=== PATIENT | male | born 1970 | race Caucasian/White ===

== ENCOUNTER 2019-09-06 07:33 | Observation (INO) ==
--- NOTE | 2019-09-05 11:44 | Anesthesiology Consultation ---
Date of Service September 05, 2019 Assessment & Plan (1) Encounter for pre-operative examination: Chart Review Chart Review: Patient NOT seen in Pre Admission Testing See below - clearance not possible due to no available information or testing. Consults Requested none Additional Notes Per cardiac note from Luis Fitzpatrick - "Preoperative Cardiologic Evaluation. He is scheduled to undergo a Left KEVIN with Dr. Lloyd on 09/06/2018. Patient was referred because of an Abnormal Preoperative EKG dated 08/25/2019 which was read as an Accelerated Junctional Rhythm at 79 bpm this tracing -- however has a lot of artifact and I have no prior tracings to compare it to. Repeat EKG today shows normal sinus rhythm at 87 bpm, and it has much less artifact than his 08/25/2019 tracing -- and P wave morphology in the lateral leads of both tracings as the same. This would suggest that his 08/25/2019 tracing was indeed normal sinus rhythm and not an accelerated junctional rhythm. Because he has small Q-waves in leads III and aVF -- we did a quick look echocardiogram in the office which showed normal LV size, wall motion, and systolic function. LVEF 55% to 60%. Based on his functional status without limiting cardiopulmonary symptoms, normal LV systolic function and wall motion on echocardiogram today -- on patient is an acceptable surgical risk to proceed with surgery as scheduled, we recommend that he take his usual dose of Amlodipine 10 mg on the morning of surgery with sips of water. He should hold his Lisinopril the morning of surgery. There is no need for further cardiac workup at this time." Otherwise, we have no available information on the patient at this time. EKG was never sent from the surgeons office and no preoperative lab work was completed. Preoperative questions were not asked. Patient cannot be fully cleared at this time. Pt tentatively cleared for full preoperative workup on the DOS. Orders placed for repeat EKG, CMP, CBC, INR DOS. Additional orders including fluid bolus will need to wait for further testing results. History Surgery Operation Date: 07/12/19 07:00 Proposed Procedures p Left Total Hip Arthroplasty - Alejo Lloyd MD Operation Date: 09/06/19 10:10 Proposed Procedures p Left Total Hip Arthroplasty - Alejo Lloyd MD Height/Weight Height: 5 ft 11 in Weight: 114.759 kg Allergies Allergy/AdvReac Type Severity Reaction Status Date / Time azithromycin [From Zithromax] Allergy Unknown UNKN Verified 09/05/19 09:55 Medications Home Medications Medication Instructions Recorded Confirmed Last Taken acetaminophen 500 mg PO QID PRN 06/30/19 09/05/19 Unknown amlodipine 10 mg PO QAM 06/30/19 09/05/19 Unknown atorvastatin 10 mg PO HS 06/30/19 09/05/19 Unknown fluoxetine 20 mg PO HS 06/30/19 09/05/19 Unknown levalbuterol tartrate [Xopenex HFA] 1 puff INHALATION Q6H PRN 06/30/19 09/05/19 Unknown lisinopril 30 mg PO QAM 06/30/19 09/05/19 Unknown Past Medical History Medical History Asthma High cholesterol Hypertension Major depressive disorder Osteoarthritis Past Surgical History Surgical History No history of previous surgery Social History Smoking Status: Unknown if ever smoked
[~2019-09-06 07:33] MED LIST: BUPIVACAINE 0.5 % 5 MG/1 ML PF 10ML VIAL ONE; CEFAZOLIN 2000MG 2,000 MG/15 ML SYR IV SCH; LR 15ML/HR IV SCH; LR 60ML/HR IV SCH; ROPIVACAINE 0.5% HCL/PF 150 MG, BUPIVACAINE 0.5% MPF 30 ML, EPINEPHrine 0.15 MG, Ketoro... INFIL SCH; TRANEXAMIC ACID 1,000 MG **IV Pre-op IV SCH; VANCOMYCIN HCL 1,750 MG in SODIUM CHLORIDE 0.9% 500 ML IV SCH
--- NOTE | 2019-09-06 07:44 | History & Physical Bridge Note ---
Date of Service September 06, 2019 History & Physical Bridge Note I have examined the patient, reviewed the History & Physical and in the interval since the performance of the History & Physical I have noted the following changes of clinical significance: consent obtained.no changes noted
[2019-09-06] MEDS ORDERED: TRANEXAMIC ACID / 0.7% NACL 1000MG/100ML BAG IV ONE (08:26)
[2019-09-06] MEDS ORDERED: MIDAZOLAM HCL 1 MG/ML 2ML VIAL ONE (08:37)
[2019-09-06] MEDS ORDERED: DEXAMETHASONE SOD INJ 4 MG/ML VIAL ONE (08:37)
[2019-09-06] MEDS ORDERED: LIDOCAINE HCL 2% 2 ML VIAL/AMP(20MG/ML) INFIL ONE (08:37)
[2019-09-06] MEDS ORDERED: PROPOFOL IV EMULSION 10 MG/ML 20 ML VIAL IV ONE ×4 (08:37→11:24)
[2019-09-06] MEDS ORDERED: ONDANSETRON INJ 2 MG/ML 2 ML VIAL ONE (08:37)
[2019-09-06] MEDS ORDERED: HYDROmorphone INJ 1 MG/ML SYRINGE IV PRN (09:06)
[2019-09-06] MEDS ORDERED: ONDANSETRON INJ 2 MG/ML 2 ML VIAL IV PRN ×2 (09:06→13:25)
[2019-09-06] MEDS ORDERED: KETOROLAC 30 MG/ML VIAL IV PRN (09:06)
[2019-09-06] MEDS ORDERED: ePHEDrine sulfate 50 MG/ML AMP IV PRN (09:06)
[2019-09-06] MEDS ORDERED: ATROPINE SULFATE 0.1 MG/ML 10ML SYR IV PRN (09:06)
[2019-09-06] MEDS ORDERED: ORTHO JOINT ANESTHETIC ONE (09:44)
[2019-09-06] MEDS ORDERED: PHENYLEPHRINE 100MCG/ML 5ML SYR ONE (10:17)
[2019-09-06] MEDS ORDERED: KETAMINE HCL INJ 50 MG/ML 10 ML VIAL ONE (10:28)
[2019-09-06] MEDS ORDERED: GLYCOPYRROLATE 0.2 MG/ML VIAL ONE (10:34)
[2019-09-06] MEDS ORDERED: PHENYLEPHRINE HCL 10 MG/ML VIAL ONE (11:01)
--- NOTE | 2019-09-06 11:42 | Post Operative Brief Note ---
Immediate Post Op Note v1 Date of Surgery September 06, 2019 Pre & Post Diagnosis Operation Date: 07/12/19 07:00 <No data on this case meets the specified criteria> Operation Date: 09/06/19 10:10 Pre-Op Diagnosis: Degenerative Joint Disease Left Hip Post-Op Diagnosis: Degenerative Joint Disease Left Hip I identified the patient and participated in the time-out.: Yes Procedure Operation Date: 07/12/19 07:00 <No data on this case meets the specified criteria> Operation Date: 09/06/19 10:10 Actual Procedures p Left Total Hip Arthroplasty, Uncemented(Left) - Alejo Lloyd MD Surgeon Alejo Lloyd MD [facility] Re[facility]ist [facility] Estimated Blood Loss 125 Findings Consistent with Post-Op Diagnosis
--- NOTE | 2019-09-06 11:42 | Electrocardiogram Report ---
Test Reason : Blood Pressure : / mmHG Vent. Rate : 077 BPM Atrial Rate : 077 BPM P-R Int : 156 ms QRS Dur : 088 ms QT Int : 400 ms P-R-T Axes : 020 043 035 degrees QTc Int : 452 ms Normal sinus rhythm Normal ECG No previous ECGs available Confirmed by Antonio Samuel ([id number]) on 09/06/2019 11:41:48 AM Referred By: Alejo Lloyd Confirmed By:Antonio Samuel
--- NOTE | 2019-09-06 11:50 | Operative Report ---
DATE OF OPERATION: 09/06/2019 SURGEON: Alejo Lloyd MD POWER GENERATING PLANT OPERATOR: John Dunaway PA-C. No resident or fellow available. 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 OPERATION PERFORMED: Non-cemented left total hip replacement. SUMMARY OF IMPLANTS: Size 54 acetabular shell sector cup, 30 x 6.5 screw, 36 x 54 neutral liner, 1 standard size 2 Tri-Lock stem, 36+1.5 ceramic head. ESTIMATED BLOOD LOSS: 125 mL. CRYSTALLOID: Per anesthesia. IV antibiotics and consent confirmed. DESCRIPTION OF PROCEDURE: The patient appropriately identified, site verified, consent verified. Antibiotics confirmed as being given. The left lower extremity was prepped and draped in usual routine fashion with the patient in the right lateral decubitus position. He had severe stiffness of the hip with flexion to about 70 degrees, extension to -20 degrees, rotation arc 25 degrees. Abduction was about 25 degrees to 30 degrees. Once he was prepped and draped in usual routine fashion, a generous Rohan-Langenbeck incision was made, old incision that was used for previous surgeries was avoided. Full thickness flaps raised scar tissue released and the IT band on the gluteus wali fascia was then split. A retractor was then placed. Care taken to protect the sciatic nerve. The short external rotators were then released off the femur. Capsule was then teed, the hip was then dislocated. There was marked deformity of the humeral neck, head and had a large osteophyte off both the acetabulum and off the femoral head. Once the head was resected, the soft tissue was released further around the acetabulum, the femur out of the way and once this was done, reasonable exposure was obtained. The labrum was then excised. Exposure was then improved. Osteophytes were then resected off the posterior and inferior margin of the acetabulum. Serial reaming was then carried up to a size 54 and a 54 cup impacted into appropriate anteversion and inclination with excellent pressfit. A 6.5 x 30 screw was placed with excellent purchase. Trial liner was seated. Some additional osteophytes resected. Femur was then flexed and internally rotated. The proximal femur was completely sealed shut. This required careful reaming by hand and by power to find the canal. Once this was done, serial broaching ring was carried up to a size 1. Size 1 was quite tight and fit well. Trial reduction with a +5 and a +1.5 was carried out. The +5 gave the leg lengths slightly longer. However, the hip was very, very tight, so it was elected to go to 1.5. The hip was stable with both heads. This was with marked flexion, internal rotation and adduction. There was no instability with extension and external rotation. The leg lengths were relatively equal with a 1.5 head. The hip was then dislocated. All trial remaining implants removed. The wound irrigated with Betadine, Pulsavac, hole eliminator seated, permanent liner seated, and permanent stem and head seated. The hip was reduced, it was stable. Leg lengths were good. The wound was irrigated one final time and then closed with #2 Vicryl for the capsule, #2 Vicryl for the IT band and the gluteus wali fascia and deep fat, 2-0 Vicryl for the superficial fat and subcutaneous tissue and stainless steel clips for skin. Appropriate dressing applied. The patient was then transferred to recovery room in satisfactory condition having tolerated the procedure well. Again estimated blood loss was 125 mL. Crystalloid per anesthesia. DVT prophylaxis per protocol. Pathology pending on bone. I attest to the content of the Intraoperative Record and any orders documented therein. Any exception s are noted below.
--- NOTE | 2019-09-06 11:51 | Operative Report ---
Post Operative Report Pre & Post Diagnosis Operation Date: 07/12/19 07:00 <No data on this case meets the specified criteria> Operation Date: 09/06/19 10:10 Pre-Op Diagnosis: Degenerative Joint Disease Left Hip Post-Op Diagnosis: Degenerative Joint Disease Left Hip I identified the patient and participated in the time-out.: Yes Procedure Operation Date: 07/12/19 07:00 <No data on this case meets the specified criteria> Operation Date: 09/06/19 10:10 Actual Procedures p Left Total Hip Arthroplasty, Uncemented(Left) - Alejo Lloyd MD Surgeon GÓMEZ Lloyd MD Instrumentation Technologist krerie Estimated Blood Loss 125 Findings Consistent with Post-Op Diagnosis Specimens see operative report Drains none Complications none Disposition Accompanied Patient To Recovery: Yes Disposition: Recovery Room Indications This 49-year-old white male presented to the office with complaints of intractable left hip pain. He had a distant history of fracture. Patient had tried conservative care measures without improvement. He elected to proceed with surgical intervention after being educated about potential risks and outcomes. Preoperative imaging was obtained. Description of Procedure Patient was administered a spinal anesthetic and then taken to the operating room where he was given sedation. He was prepped and draped in the usual sterile fashion. Please see Dr. Lloyd's operative report for specifics of the procedure. I was present for the entire case from initial patient positioning through final wound closure. Assistance was provided in tissue retraction, hemostasis, trial implant placement, final implant placement, and final wound closure. Patient was taken to the recovery room in satisfactory condition. I attest to the content of the Intraoperative Record and any orders documented therein. Any exceptions are noted below.
--- NOTE | 2019-09-06 12:18 | XRay Report ---
SINGLE VIEW PELVIS CLINICAL HISTORY: Postoperative examination. FINDINGS: An AP, portable, supine view of the hips and lower pelvis is compared to study dated 019. A bipolar left hip arthroplasty is in near anatomic alignment. A single cortical lag screw trans fixes the acetabular cup. No acute fracture is seen. Moderate degenerative joint space narrowing is n oted in the right hip. There are expected postoperative findings overlying the left hip including ski n clips, subcutaneous gas, and soft tissue swelling. IMPRESSION: Expected postoperative findings status post left hip arthroplasty placement. No acute fra cture is seen. Electronically signed by: Bertrand Foley M.D. 09/06/2019 12:17 PM
--- NOTE | 2019-09-06 12:35 | Progress Note ---
DATE: 09/06/2019 SUBJECTIVE: Status post left total hip replacement. The patient is sleeping comfortably. Arousable. His spinal is in place. Cannot assess his neurologic function. He denies any chest pain, shortness of breath, fever, chills, nausea, vomiting or headache. OBJECTIVE: Vital signs are stable, he is afebrile. Postop x-rays look excellent. ASSESSMENT: Overall, doing well. Continue with observation. Await for spinal to wear off. Mobilize NIC. Minimize risk for DVT/PE prophylaxis. The patient is an incarcerated patient, will return to his institution tomorrow.
--- NOTE | 2019-09-06 12:46 | Discharge Summary ---
CHIEF COMPLAINT: Left hip pain. HISTORY OF PRESENT ILLNESS: The patient is an inmate at [facility] who has had severe osteoarthritis post-traumatic deformity of his left hip. At this point in time, he is here for elective left total hip replacement. Today, the hospital course has been uneventful. Postop x-rays look excellent. PAST MEDICAL HISTORY: Remarkable for hypertension, hypercholesterolemia, COPD, anxiety, depression, osteoarthritis, low back pain, acid reflux, obesity, obsessive compulsive disorder. FAMILY HISTORY: Noncontributory. SOCIAL HISTORY: Reveals he does not use any recreational drugs. He does not use any alcohol. He does smoke cigarettes. He is an inmate at [facility]. PAST SURGICAL HISTORY: Remarkable for left hip surgery at age 14 after injuries. PREADMISSION MEDICATIONS: Include fluoxetine, Tylenol, amlodipine, atorvastatin, lisinopril, and Xopenex. To be discharged on Tylenol 3. He also be discharged on Coumadin to keep INR 1.8 to 2.2. ALLERGIES: ZITHROMAX, which causes throat swelling and mouth swelling. He also states he is ALLERGIC TO PENICILLIN which causes a rash and skin sensitivity after a few days; however, he tolerates cephalosporins. REVIEW OF SYSTEMS: Noncontributory. ASSESSMENT: Overall, doing well status post left total hip replacement. At this point in time, we will discharge to [facility] with wound VAC in place. Follow up in 1 week for wound dressing change. Coumadin to keep INR 1.8 to 2.2.
--- NOTE | 2019-09-06 12:51 | Anesthesiology Progress Note ---
Date of Service September 06, 2019 Anesthesia Post Procedure Vital Signs Vital Signs: Temp Pulse Pulse Resp BP Pulse Ox 09/06/19 12:40 37.0 C 70 13 160/91 H 95 09/06/19 12:30 37.0 C 70 17 155/95 H 99 09/06/19 12:20 72 16 147/89 H 97 09/06/19 12:10 36.2 C L 73 25 H 134/96 98 09/06/19 12:00 36.2 C L 64 14 118/65 93 09/06/19 11:50 36.2 C L 74 18 118/66 96 09/06/19 11:48 36.2 C L 74 18 118/66 96 09/06/19 08:07 36.8 C 76 20 169/90 H 96 Pain Intensity Left Leg: Pain Intensity: 0 Transfer of Care Handoff Completed per policy Notes Mental Status: alert / awake / arousable Patient Amnestic to Procedure: Yes Nausea / Vomiting: adequately controlled Pain: adequately controlled Airway Patency, RR, SpO2: stable & adequate BP & HR: stable & adequate Hydration State: stable & adequate Anesthetic Complications: no major complications apparent
[2019-09-06] MEDS ORDERED: DiphenhydrAMINE HCL 50 MG/ML VIAL IV PRN (13:25)
[2019-09-06] MEDS ORDERED: METOCLOPRAMIDE HCL INJ 5 MG/ML 2 ML VIAL IV PRN (13:25)
[2019-09-06] MEDS ORDERED: MAGNESIUM HYDROXIDE SUSP 30 ML UDC PO PRN (13:25)
[2019-09-06] MEDS ORDERED: ALUMINUM/MAGNESIUM SUSP 30 ML UDC PO PRN (13:25)
[2019-09-06] MEDS ORDERED: NALOXONE HCL 0.4 MG/1 ML VIAL/CARP IV PRN (13:25)
[2019-09-06] MEDS ORDERED: bisacodyL 10 MG SUPP PR PRN (13:25)
[2019-09-06] MEDS ORDERED: LEVALBUTEROL TARTRATE 15 GM HFA.AER.AD INH PRN (13:25)
[2019-09-06] MEDS ORDERED: SODIUM CHLORIDE 0.9% 1000ML 1,000 ML IV SCH (13:25)
[2019-09-06] MEDS ORDERED: TAMSULOSIN HCL 0.4 MG CAP PO PRN (13:25)
[2019-09-06] MEDS ORDERED: HYDROmorphone INJ 0.5 MG/0.5 ML SYR IV PRN (13:25)
[2019-09-06] MEDS ORDERED: OXYCODONE HCL IR 5 MG TAB (IMMEDIATE RELEASE) PO PRN (13:25)
[2019-09-06 14:39] LABS: INR 1.1 (0.9-1.1); Prothrombin Time 10.9 Seconds (9.0-12.0)
[2019-09-06] MEDS: ACETAMINOPHEN 500 MG TAB PO SCH ×2 (15:23→21:09)
[2019-09-06] MEDS: KETOROLAC 30 MG/ML VIAL IV SCH ×2 (15:23→19:16)
[2019-09-06] MEDS ORDERED: WARFARIN SOD 5 MG TAB PO SCH (16:00)
[2019-09-06] MEDS: ASCORBIC ACID 500 MG TAB PO SCH (17:54)
[2019-09-06] MEDS: FERROUS GLUCONATE 324 MG TAB PO SCH (17:54)
[2019-09-06] MEDS: CEFAZOLIN 2000MG 2,000 MG/15 ML SYR IV SCH (17:58)
[2019-09-06] MEDS ORDERED: TRANEXAMIC ACID / 0.7% NACL 1,000 MG/100 ML BAG IV SCH (17:58)
[2019-09-06] MEDS: ORTHO WARFARIN NOMOGRAM SCH (18:56)
[2019-09-06] MEDS: DOCUSATE SODIUM 100 MG CAP PO SCH (20:46)
[2019-09-06] MEDS ORDERED: SENNA 8.6 MG TAB PO SCH (21:00)
[2019-09-06] MEDS ORDERED: ATORVASTATIN 10 MG TAB PO SCH (21:00)
[2019-09-07] MEDS: CEFAZOLIN 2000MG 2,000 MG/15 ML SYR IV SCH (02:31)
[2019-09-07] MEDS: KETOROLAC 30 MG/ML VIAL IV SCH ×2 (02:32→08:41)
[2019-09-07 05:37] LABS: INR 1.1 (0.9-1.1)
[2019-09-07 05:38] LABS: Basophils # (auto) 0.01 K/uL (0-0.2); Basophils % (auto) 0.1 %; Eosinophils # (auto) 0.01 K/uL (0-0.5); Eosinophils % (auto) 0.1 %; Hematocrit (blood only) 35.8 % (42-52); Hemoglobin 12.3 g/dL (14.0-18.0); Immature Granulocytes # (auto) 0.04 K/uL (0.00-0.02); Immature Granulocytes % (auto) 0.3 %; Lymphocytes # (auto) 1.11 K/uL (1.2-3.4); Mean Corpuscular Hemoglobin 31.3 pg (25-34); Mean Corpuscular Hgb Conc 34.4 g/dL (32-36); Mean Corpuscular Volume 91.1 fL (80-100); Mean Platelet Volume 10.5 fL (7.4-10.4); Monocytes # (auto) 0.89 K/uL (0.11-0.59); Monocytes % (auto) 7.2 %; Neutrophils # (auto) 10.28 K/uL (1.4-6.5); Neutrophils % (auto) 83.3 %; Platelet Count 193 K/uL (130-400); RDW Coefficient of Variation 12.4 % (11.5-14.5); RDW Standard Deviation 41.7 fL (36.4-46.3); Red Blood Count 3.93 M/uL (4.7-6.1); White Blood Count 12.34 K/uL (4.8-10.8)
[2019-09-07 05:45] LABS: Calcium 8.5 mg/dl (8.5-10.1); Creatinine Clr Calc Pharmacy 107.7 ml/min; Est GFR (African American) 91.9; Est GFR (Non-African American) 79.3; Potassium 4.4 mmol/L (3.5-5.1)
[2019-09-07] MEDS: ACETAMINOPHEN 500 MG TAB PO SCH (06:32)
--- NOTE | 2019-09-07 07:15 | Anesthesiology Progress Note ---
Date of Service September 07, 2019 Anesthesia Post Procedure Vital Signs Vital Signs: Temp Pulse Pulse Pulse Resp BP Pulse Ox 09/07/19 03:00 36.7 C 79 16 156/89 H 97 09/07/19 00:32 36.7 C 77 16 125/76 92 09/06/19 20:06 36.7 C 84 16 141/79 H 94 09/06/19 16:16 36.5 C 78 16 137/82 95 09/06/19 15:20 36.7 C 80 16 132/83 95 09/06/19 14:23 84 16 138/88 94 09/06/19 13:45 36.7 C 73 18 145/87 H 95 09/06/19 13:15 36.8 C 72 16 135/88 94 09/06/19 13:00 37.0 C 68 15 158/92 H 95 09/06/19 12:50 37.0 C 70 13 156/94 H 94 09/06/19 12:40 37.0 C 70 13 160/91 H 95 09/06/19 12:30 37.0 C 70 17 155/95 H 99 09/06/19 12:20 72 16 147/89 H 97 09/06/19 12:10 36.2 C L 73 25 H 134/96 98 09/06/19 12:00 36.2 C L 64 14 118/65 93 09/06/19 11:50 36.2 C L 74 18 118/66 96 09/06/19 11:48 36.2 C L 74 18 118/66 96 09/06/19 08:07 36.8 C 76 20 169/90 H 96 Pain Intensity Left Leg: Pain Intensity: 3 Notes Mental Status: alert / awake / arousable and participated in evaluation Nausea / Vomiting: adequately controlled Pain: adequately controlled Airway Patency, RR, SpO2: stable & adequate BP & HR: stable & adequate Hydration State: stable & adequate Neuraxial Anesthesia: sensory block resolved Anesthetic Complications: Pt Satisfied with anesthetic care
--- NOTE | 2019-09-07 07:34 | Progress Note ---
DATE: 09/06/2019 SUBJECTIVE: Status post left total hip replacement. The patient is sitting up in bed, is comfortable. Denies chest pain, shortness of breath, fever, chills, nausea, vomiting or headache. He states he is voiding, eating and drinking well. Denies any abdominal pain. He states that his dressings needed to be reinforced. PHYSICAL EXAMINATION: Reveals calves nontender. Hip motion is supple and pain free. Hip located. Neurovascular check femoral sciatic nerve is normal. Wound dressing is clean. Laboratory work today reveals hematocrit stable at 35.8, white count of 12.3, slightly elevated based on steroid stress doses. Glucose slightly elevated at 253 likely based on same issue. INR is not therapeutic at 1.1. ASSESSMENT: Postop day #1 status post left total hip replacement. The patient is stable for discharge/transfer back to the facility. We will place a Prevena wound VAC on today to keep the wound nontouchable for the next week. He will do return to the office to have that removed and redressed appropriately as needed. Collins to stay in for 2 weeks. Discharge on 4 mg Coumadin. Mobilize, weightbearing as tolerated left lower extremity. Posture precautions to prevent dislocation. The hip was extremely stable under anesthesia.
[2019-09-07] MEDS ORDERED: dexAMETHasone 10 MG in SYRINGE 0 ML IV SCH (08:00)
[2019-09-07] MEDS: FERROUS GLUCONATE 324 MG TAB PO SCH (08:35)
[2019-09-07] MEDS: ASCORBIC ACID 500 MG TAB PO SCH (08:41)
[2019-09-07] MEDS: DOCUSATE SODIUM 100 MG CAP PO SCH (08:41)
[2019-09-07] MEDS ORDERED: lisinopriL 10 MG TAB PO SCH (09:00)
[2019-09-07] MEDS ORDERED: MULTIVITAMIN TAB PO SCH (09:00)
[2019-09-07] MEDS ORDERED: AMLODIPINE BESYLATE 5 MG TAB PO SCH (09:00)
--- NOTE | 2019-09-07 09:11 | Orthopedic Progress Note ---
Date of Service September 07, 2019 Assessment & Plan (1) S/P total hip arthroplasty: Dressing was changed to a Pravena wound VAC by me. This will be left in place for a week. He will receive Coumadin today prior to discharge. Continue Coumadin 4 mg daily and recheck his blood on Wednesday. The [facility] will keep his INR between 1.8 and 2.2. He will return to the [facility]. They will control his pain medication from there. Total hip precautions were reviewed with the patient. Avoid forward flexion and crossing his legs. He will also sleep with a pillow between his legs. PT/OT today. Follow-up in the office in 2 weeks as scheduled for staple removal. Subjective Patient is seen in his room this morning. He is eating breakfast. He has no complaints at this time. Denies any nausea or vomiting. States he slept fairly well overnight. Pain is currently controlled. Review of Systems Review of Systems: unchanged from yesterday Physical Exam Physical Exam: General: Well-developed, well-nourished, middle-aged white male, in no acute distress. Sitting in bed. Alert and oriented. Skin: Left hip has the postoperative dressing in place. Upon removal, there is significant bloody drainage on his dressings. Surgical site has no active bleed ing. Teddy are intact. Wound edges are well approximated. Nonfluctuant. Area is mildly tender to touch. Musculoskeletal: Patient has intact motor function to his toes, ankle, knee, and hip. He is able to roll on his side without assistance. Neurologic: Gross sensation is intact across the left leg by soft touch. Peripheral pulses are 2+. Results & Data Vital Signs (Past 12 Hours) Vital Signs Temp Pulse Resp BP Pulse Ox 09/07/19 08:20 36.8 C 74 18 146/70 H 97 09/07/19 03:00 36.7 C 79 16 156/89 H 97 09/07/19 00:32 36.7 C 77 16 125/76 92 Laboratory Results H&H is 12.3 and 35.8. INR is 1.1. PRP is relatively unremarkable. Sugar is elevated at 253. (1) S/P total hip arthroplasty Laterality: left Qualified Code(s): Z96.642 - Presence of left artificial hip joint
[2019-09-07] MEDS: ORTHO WARFARIN NOMOGRAM SCH (09:55)
[2019-09-07] MEDS ORDERED: WARFARIN SOD 5 MG TAB PO ONE ×2 (10:15→16:00)
== END 2019-09-07 12:23 | DRG 470 ==
LOC: ASU 07:33 → INTOOBSV 12:03 → 3E 12:03